=== PATIENT | male | born 1940 | race Caucasian/White ===

== ENCOUNTER 2023-09-16 09:13 | Emergency (ER) | payer OTHER ==
[2023-09-16 10:07] LABS: Absolute Lymphocytes (CBC) 0.9 K/uL (0.7-4.9); Hematocrit 44.4 % (39.6-49.0); Lymphocytes % 15.7 % (15.3-44.8); MCV 89.1 fL (80-100); MPV 7.7 fL (7.6-11.3); Platelets 203 thou/uL (152-406); RBC Red Blood Cell Count 4.98 M/uL (4.33-5.43)
[2023-09-16 10:08] LABS: Protime INR 1.15
[2023-09-16 10:29] LABS: Albumin 3.1 g/dL (3.4-5.0); Bilirubin Direct 0.3 mg/dL (0-0.2); Bilirubin Indirect, Calculated 0.6 mg/dL (0.2-0.8); Bilirubin Total 0.9 mg/dL (0.2-1.0); Potassium 3.7 mEq/L (3.5-5.1); Protein, Total 6.6 g/dL (6.4-8.2); Troponin High Sensitivity 12.4 pg/mL (<58.9)
--- NOTE | 2023-09-16 10:30 | RAD REPORT ---
EXAM DESCRIPTION: CT - Abdomen Pelvis Wo Contrast - 09/16/2023 10:13 am CLINICAL HISTORY: Abdominal pain. ABD PAIN COMPARISON: <Comparisons> TECHNIQUE: CT imaging of the abdomen and pelvis was performed without contrast. Solid organ, bowel a nd vascular assessment is limited due to lack of IV and oral contrast. All CT scans are performed using dose optimization technique as appropriate and may include automated exposure control or mA/KV adjustment according to patient size. FINDINGS: The lower lung bello are clear.Cholelithiasis. The liver, spleen, pancreas, adrenal glands are within normal limits for a limited non-contrast exami nation.Several caliceal stones are present in the right kidney without hydronephrosis. No left-sided stone or hydronephrosis. 4.9 cm infrarenal abdominal aortic aneurysm. Moderate fat containing umbilic al hernia. No bowel obstruction, free air, free fluid or abscess. The appendix is normal. Moderate lumbosacral degenerative changes. IMPRESSION: Cholelithiasis. Punctate right caliceal stones without hydronephrosis. 4.9 cm infrarenal abdominal aortic aneurysm. Moderate fat containing inguinal hernia. A limited non-contrast examination was performed as detailed.
--- NOTE | 2023-09-16 10:54 | ER ---
Nurse's Notes [facility] Name: Dale Perry Age: 83 yrs Sex: Male : 1940 Arrival Date: 09/16/2023 Time: 09:13 Bed 18 Private MD: Diagnosis: flank pain;nephrolithiasis;shortness of breath;diarrhea;generalized weakness Presentation: 09/16 09:21 Chief complaint: EMS states: "toned out for SOB that has been occurring for years and mb9 burning with urination for the past few months. Pt denies N/V". Coronavirus screen: Vaccine status: Patient reports receiving the 2nd dose of the covid vaccine. Ebola Screen: No symptoms or risks identified at this time. Initial Sepsis Screen: Does the patient meet any 2 criteria? No. Patient's initial sepsis screen is negative. Does the patient have a suspected source of infection? No. Patient's initial sepsis screen is negative. Risk Assessment: Do you want to hurt yourself or someone else? Patient reports no desire to harm self or others. Onset of symptoms was September 16, 2023. 09:21 Method Of Arrival: EMS: [facility] mb9 09:21 Acuity: MAIN 3 mb9 Triage Assessment: 09:33 General: Appears uncomfortable, Behavior is calm, cooperative. Pain: Denies pain. EENT: mb9 No deficits noted. Neuro: Brown Agitation-Sedation Scale (RASS): 0 - Alert and Calm Level of Consciousness is awake, alert, obeys commands, Oriented to person, place, time, situation, Appropriate for age. Cardiovascular: Denies chest pain, Heart tones S1 S2 present Patient's skin is warm and dry. Respiratory: Reports shortness of breath Airway is patent Respiratory effort is even, unlabored, Respiratory pattern is regular, symmetrical, Breath sounds are coarse bilaterally. GI: Abdomen is obese, Bowel sounds present X 4 quads. Abd is soft and non tender X 4 quads. Patient currently denies diarrhea, nausea, vomiting. : Reports burning with urination. Derm: Skin is pink, warm \\T\\ dry. Musculoskeletal: Range of motion: intact in all extremities. Historical: - Allergies: 09:23 Codeine; mb9 09:23 thorazine; mb9 - Home Meds: 09:23 amlodipine 10 mg tablet [Active]; metformin 1,000 mg Oral tablet [Active]; mb9 valsartan-hydrochlorothiazide 80-12.5 mg oral tablet [Active]; - PMHx: 09:23 Myocardial infarction; Diabetes mellitus; Hypercholesterolemia; Hypertensive disorder; mb9 - PSHx: 09:23 Stented artery; mb9 - Immunization history:: Adult Immunizations up to date. - Social history:: Smoking status: Patient denies any tobacco usage or history of. - Family history:: not pertinent. - Hospitalizations: : No recent hospitalization is reported. - History obtained from: EMS. Screenin:59 [facility] ED Fall Risk Assessment (Adult) History of falling in the last 3 months, mb9 including since admission No falls in past 3 months (0 pts) Confusion or Disorientation No (0 pts) Intoxicated or Sedated No (0 pts) Impaired Gait No (0 pts) Mobility Assist Device Used No (0 pt) Altered Elimination No (0 pt) Score/Fall Risk Level 0 - 2 = Low Risk Oriented to surroundings, Maintained a safe environment, Educated pt \\T\\ family on fall prevention, incl call for assistance when getting out of bed. Abuse screen: Denies threats or abuse. Nutritional screening: No deficits noted. Tuberculosis screening: No symptoms or risk factors identified. Assessment: :59 Reassessment: see triage assessment. mb9 11:13 Reassessment: No changes from previously documented assessment. Patient and/or family mb9 updated on plan of care and expected duration. Pain level reassessed. Patient is alert, oriented x 3, equal unlabored respirations, skin warm/dry/pink. 11:19 Reassessment: spoke to pts daughter Dunia, states she will be here in 30 minutes to mb9 pick pt up. Vital Signs: 09:21 BP 159 / 82; Pulse 67; Resp 24; Temp 97.6; Pulse Ox 100% on 2 lpm NC; Weight 113.4 kg; mb9 Height 6 ft. 3 in. ; Pain 0/10; 11:13 BP 135 / 83; Pulse 60; Resp 20; Pulse Ox 98% on R/A; mb9 09:21 Body Mass Index 31.25 (113.40 kg, 190.5 cm) mb9 09:21 Pain Scale: Adult mb9 ED Course: :18 Patient arrived in ED. eb 09:18 Seven Alejo MD is Attending Physician. rt 09:21 Jimena Pelaez, ASIA is Primary Nurse. mb9 09:23 Triage completed. mb9 09:23 Arm band placed on. mb9 09:30 Attending Physician role handed off by Seven Alejo MD cp3 09:30 Brisa Cordero MD is Attending Physician. cp3 09:50 Influenza Screen (a \\T\\ B) Sent. ld1 09:50 COVID-19 SARS RT PCR Sent. ld1 09:58 Basic Metabolic Panel Sent. mb9 09:58 CBC with Diff Sent. mb9 09:58 LFT's Sent. mb9 09:58 Magnesium Sent. mb9 09:59 Placed in gown. Bed in low position. Call light in reach. Side rails up X 1. Client mb9 placed on continuous cardiac and pulse oximetry monitoring. NIBP monitoring applied. media monitor on. 09:59 NT PRO-BNP Sent. mb9 09:59 PT-INR Sent. mb9 09:59 Troponin HS Sent. mb9 09:59 Inserted saline lock: 20 gauge in right antecubital area, using aseptic technique. mb9 Blood collected. 09:59 EKG done, by ED staff, reviewed by Brisa Cordero MD. mb9 10:15 CT Abd/Pelvis - Without Contrast In Process Unspecified. EDMS 10:45 XRAY Chest (1 view) In Process Unspecified. EDMS 10:52 Ronni Cruz DO is Referral Physician. cp3 11:18 No provider procedures requiring assistance completed. IV discontinued, intact, mb9 bleeding controlled, No redness/swelling at site. Pressure dressing applied. Administered Medications: No medications were administered Medication: 10:00 VIS not applicable for this client. mb9 Outcome: 10:53 Discharge ordered by . cp3 11:20 Discharged to home via wheelchair, with friend, mb9 11:20 Condition: stable 11:20 Discharge instructions given to patient, family, Instructed on discharge instructions, follow up and referral plans. Demonstrated understanding of instructions, follow-up care, medications, Prescriptions given X 1, 11:20 Patient left the ED. mb9 Signatures: Dispatcher [employer] EDMS Brisa Cordero MD MD cp3 Ryasa Brennan Lauren, RN RN ld1 Jimena Pelaez RN RN mb9 Seven Alejo MD MD rt Corrections: (The following items were deleted from the chart) 09:33 09:21 BP 159 / 82; Pulse 67bpm; Resp 18bpm; Pulse Ox 100% 2 lpm Nasal Cannula; 113.4 mb9 kg; Height 6 ft. 3 in.; BMI: 31.2; Pain 0/10, Adult; mb9
--- NOTE | 2023-09-16 10:54 | EDPHYS ---
Physician Documentation [facility] Name: Dale Perry Age: 83 yrs Sex: Male : 1940 Arrival Date: 09/16/2023 Time: 09:13 Bed 18 Private MD: ED Physician Brisa Cordero HPI: 09/16 09:31 This 83 yrs old Male presents to ER via EMS with complaints of shortness of breath. cp3 09:31 The patient has shortness of breath at rest, with light activity. Onset: The cp3 symptoms/episode began/occurred 1 month(s) ago. Duration: The symptoms are continuous. The patient's shortness of breath is aggravated by exertion, light activity. Associated signs and symptoms: Pertinent positives: non-productive cough. Severity of symptoms: At their worst the symptoms were moderate in the emergency department the symptoms are unchanged. The patient has experienced similar episodes in the past. The patient has been recently seen by a physician: earlier today. patient sent over by the [facility] secondary to sob x 1 month. patient also complains of watery diarrhea, kidney pain, generalized weakness, chronic abdominal pain . the patient just moved from [place] and is establishing care. Historical: - Allergies: 09:23 Codeine; mb9 09:23 thorazine; mb9 - Home Meds: 09:23 amlodipine 10 mg tablet [Active]; metformin 1,000 mg Oral tablet [Active]; mb9 valsartan-hydrochlorothiazide 80-12.5 mg oral tablet [Active]; - PMHx: 09:23 Myocardial infarction; Diabetes mellitus; Hypercholesterolemia; Hypertensive disorder; mb9 - PSHx: 09:23 Stented artery; mb9 - Immunization history:: Adult Immunizations up to date. - Social history:: Smoking status: Patient denies any tobacco usage or history of. - Family history:: not pertinent. - Hospitalizations: : No recent hospitalization is reported. - History obtained from: EMS. ROS: 09:31 Constitutional: Negative for fever, chills, and weight loss, Eyes: Negative for injury, cp3 pain, redness, and discharge, ENT: Negative for injury, pain, and discharge, Neck: Negative for injury, pain, and swelling, Cardiovascular: Negative for chest pain, palpitations, and edema, : Negative for injury, bleeding, discharge, and swelling, MS/Extremity: Negative for injury and deformity, Skin: Negative for injury, rash, and discoloration, Neuro: Negative for headache, weakness, numbness, tingling, and seizure, : Respiratory: Positive for orthopnea, shortness of breath, : Abdomen/GI: Positive for diarrhea, abdominal cramps, : : Positive for urinary symptoms, burning with urination, Exam: : Constitutional: This is a well developed, well nourished patient who is awake, alert, cp3 and in no acute distress. Head/Face: Normocephalic, atraumatic. Eyes: Pupils equal round and reactive to light, extra-ocular motions intact. Lids and lashes normal. Conjunctiva and sclera are non-icteric and not injected. Cornea within normal limits. Periorbital areas with no swelling, redness, or edema. ENT: Nares patent. No nasal discharge, no septal abnormalities noted. Tympanic membranes are normal and external auditory canals are clear. Oropharynx with no redness, swelling, or masses, exudates, or evidence of obstruction, uvula midline. Mucous membranes moist. Neck: Trachea midline, no thyromegaly or masses palpated, and no cervical lymphadenopathy. Supple, full range of motion without nuchal rigidity, or vertebral point tenderness. No Meningismus. Chest/axilla: Normal chest wall appearance and motion. Nontender with no deformity. No lesions are appreciated. Cardiovascular: Regular rate and rhythm with a normal S1 and S2. No gallops, murmurs, or rubs. Normal PMI, no JVD. No pulse deficits. Respiratory: Lungs have equal breath sounds bilaterally, clear to auscultation and percussion. No rales, rhonchi or wheezes noted. No increased work of breathing, no retractions or nasal flaring. Abdomen/GI: Soft, non-tender, with normal bowel sounds. No distension or tympany. No guarding or rebound. No evidence of tenderness throughout. Back: No spinal tenderness. No costovertebral tenderness. Full range of motion. Skin: Warm, dry with normal turgor. Normal color with no rashes, no lesions, and no evidence of cellulitis. Vital Signs: 09:21 BP 159 / 82; Pulse 67; Resp 24; Temp 97.6; Pulse Ox 100% on 2 lpm NC; Weight 113.4 kg; mb9 Height 6 ft. 3 in. ; Pain 0/10; 11:13 BP 135 / 83; Pulse 60; Resp 20; Pulse Ox 98% on R/A; mb9 09:21 Body Mass Index 31.25 (113.40 kg, 190.5 cm) mb9 09:21 Pain Scale: Adult mb9 MDM: 09:30 Patient medically screened. cp3 10:48 Differential diagnosis: Anxiety Reaction CHF exacerbation, Myocardial Infarction cp3 pneumonia, pulmonary edema, reactive airway disease, Sepsis Unstable Angina colitis, diarrhea. Data reviewed: vital signs, nurses notes, EMS record, lab test result(s), EKG, radiologic studies, cxr interpreted by me- neg acute. Consideration of Admission/Observation Escalation of care including admission/observation considered. patient declined admission. I considered the following discharge prescriptions or medication management in the emergency department Medications were administered in the Emergency Department. See MAR. Independent interpretation of the following test(s) in the Emergency Department EKG: See my EKG interpretation above case monitor: rate is 65 beats/min, Rhythm is normal sinus rhythm. Historians other than the Patient: EMS: . Care significantly affected by the following chronic conditions: Diabetes, Hypertension. Response to treatment: the patient's symptoms have resolved after treatment. 10:48 ED course: ekg interpreted by me: rate 70, sinus rhythm, no evidence of acute mi. 3 09/16 09:36 Order name: Basic Metabolic Panel; Complete Time: 10:41 3 09/16 10:41 Interpretation: NA 139; K 3.7; CL 110; CO2 22; ANION GAP 10.7; GLUC 136; BUN 14; CRE cp3 1.14; GFR 65; CA 9.0. 09/16 09:36 Order name: CBC with Diff; Complete Time: 10:41 3 09/16 10:41 Interpretation: WBC 5.70; RBC 4.98; HGB 15.2; HCT 44.4; MCV 89.1; MCH 30.4; MCHC 34.2; cp3 PLT 203; RDW 14.8; MPV 7.7; KISHAN% 72.8; LYM% 15.7; MN% 9.7; EOSINOPHIL % 0.9; BASO% 0.9; NEUT A 4.2; LYMA 0.9; MNA 0.6; EOSA 0.0; BASOA 0.1. 09/16 09:36 Order name: LFT's; Complete Time: 10:41 3 09/16 10:41 Interpretation: AST 17; ALT 36; ALK 174; BILIT 0.9; BILID 0.3; IBILI, CALC 0.6; TP 6.6; cp3 ALB 3.1; GLOB 3.5; A/G 0.9. 09/16 09:36 Order name: Magnesium; Complete Time: 10:41 3 09/16 10:42 Interpretation: MG 2.0. [facility] 09/16 09:36 Order name: NT PRO-BNP; Complete Time: 10:41 [facility] 09/16 10:42 Interpretation: NT PRO-BNP 191. [facility] 09/16 09:36 Order name: PT-INR; Complete Time: 10:41 [facility] 09/16 10:41 Interpretation: INR <p>1.15</p>; PT 12.6. [facility] 09/16 09:36 Order name: Troponin HS; Complete Time: 10:41 [facility] 09/16 10:42 Interpretation: Troponin HS 12.4. [facility] 09/16 09:36 Order name: Strep [facility] 09/16 09:36 Order name: COVID-19 SARS RT PCR; Complete Time: 10:47 [facility] 09/16 09:36 Order name: Influenza Screen (a \T\ B); Complete Time: 10:41 [facility] 09/16 10:20 Order name: Throat Culture [facility] 09/16 09:36 Order name: XRAY Chest (1 view); Complete Time: 11:14 [facility] 09/16 09:36 Order name: CT Abd/Pelvis - Without Contrast; Complete Time: 10:41 [facility] 09/16 09:36 Order name: EKG; Complete Time: 09:37 [facility] 09/16 09:36 Order name: Cardiac monitoring; Complete Time: 09:44 [facility] 09/16 09:36 Order name: EKG - Nurse/Tech; Complete Time: 09:44 3 09/16 09:36 Order name: IV Saline Lock; Complete Time: 09:59 3 09/16 09:36 Order name: Labs collected and sent; Complete Time: 09:44 3 09/16 09:36 Order name: O2 Per Protocol; Complete Time: 09:44 cp3 09/16 09:36 Order name: O2 Sat Monitoring; Complete Time: 09:50 cp3 09/16 09:36 Order name: Droplet/Contact Precautions; Complete Time: 09:44 cp3 09/16 09:36 Order name: Labs collected and sent; Complete Time: 09:58 cp3 09/16 09:36 Order name: O2 Per Protocol; Complete Time: 09:49 cp3 Administered Medications: No medications were administered Disposition Summary: 09/16/23 10:53 Discharge Ordered Problem: an ongoing problem cp3 Symptoms: have improved cp3 Condition: Stable cp3 Diagnosis - flank pain cp3 - nephrolithiasis cp3 - shortness of breath cp3 - diarrhea cp3 - generalized weakness cp3 Followup: cp3 - With: Ronni Cruz DO - When: As needed - Reason: Continuance of care Discharge Instructions: - Discharge Summary Sheet cp3 Forms: - Medication Reconciliation Form cp3 - Thank You Letter cp3 - Antibiotic Education cp3 - Prescription Opioid Use cp3 - Patient Portal Instructions cp3 - Leadership Thank You Letter cp3 Prescriptions: - Lomotil 2.5-0.025 mg Oral Tablet - take 2 tablets ORAL route once daily As needed; 20 tablet; Refills: 0, Product cp3 Selection Permitted Signatures: Dispatcher [employer] Brisa Black MD MD cp3 Jimena Pelaez RN RN mb9
--- NOTE | 2023-09-16 10:56 | RAD REPORT ---
EXAM DESCRIPTION: RAD - Chest Single View - 09/16/2023 10:44 am CLINICAL HISTORY: SOB Chest pain. COMPARISON: Abdomen Pelvis Wo Contrast dated 09/16/2023 FINDINGS: Portable technique limits examination quality. The lungs are underinflated resulting in vascular crowding. The heart is mildly enlarged with a tortu ous thoracic aorta. No displaced fractures.
[2023-09-16 11:40] VITALS: BP 135/83; TEMP 97.6; O2SAT 98
--- NOTE | 2023-09-19 12:34 | EKG ---
Test Date: 2023-09-16 Test Time: 09:45:57 Magnetic Tape Typewriter Operator: EBONIE MEASUREMENT RESULTS: Intervals: Rate: 67 SC: 152 QRSD: 146 QT: 444 QTc: 469 [place]: P: 47 SC: 152 QRS: -73 T: -26 INTERPRETIVE STATEMENTS: Sinus rhythm with premature supraventricular complexes and with occasional premature ventricular complexes with ventricular esc Right bundle branch block Left anterior fascicular block Bifascicular block Abnormal ECG No previous ECG available for comparison Electronically Signed On 09-19-23 12:27:52 CREPING MACHINE OPERATOR by Hermes Perdue
== END 2023-09-16 11:20 | disposition home or self-care (01) ==
LOC: ER 09:13
DX: N20.0 Calculus of kidney (principal); R19.7 Diarrhea, unspecified; R53.1 Weakness; R06.02 Shortness of breath; E11.9 Type 2 diabetes mellitus without complications; I10 Essential (primary) hypertension; Z11.52 Encounter for screening for COVID-19; Z88.5 Allergy status to narcotic agent; Z88.8 Allergy status to other drugs, medicaments and biological substances
CPT/HCPCS: 36415; 71045; 74176; 80048; 80076; 83735; 83880; 84484; 85025; 85610; 87070; 87081; 87635; 87804; 93005; 99284